=== PATIENT | male | born 1990 | race Caucasian/White ===

== ENCOUNTER 2024-11-15 21:17 | Emergency (ER) | payer MEDICARE, MEDICAID ==
[~2024-11-15] VITALS: Ht 177.8 cm; Wt 81.0 kg
[2024-11-15 21:19] VITALS: TEMP 99.2
--- NOTE | 2024-11-15 21:33 | ELECTROCARDIOGRAPH REPORT ---
[facility] Test Date: 2024-11-15 Test Time: 21:30:21 Pat Name: BASHIR CONDON Department: EMERGENCY ROOM Room: Gender: M Pr Internship: SALAS : 1990 Requested By: UBALDO GREWAL Order Number: [id number] Reading MD: Dr. Ubaldo Grewal Measurements Intervals [place] Rate: 67 P: 62 VT: 158 QRS: 83 QRSD: 81 T: 41 QT: 364 QTc: 385 Interpretive Statements Sinus rhythm Electronically Signed On 11-15-2024 22:15:[address] Ubaldo Grewal Please click the below link to view image of tracing.
[2024-11-15 21:45] LABS: BASOPHILS % (AUTO) 0.3 % (0-1); EOSINOPHILS # (AUTO) 0.1 X10'3 (0-0.9); EOSINOPHILS % (AUTO) 2.2 % (0-6); HEMATOCRIT 46.6 % (42.0-52.0); HEMOGLOBIN 16.3 g/dl (14.0-17.9); LYMPHOCYTES # (AUTO) 1.6 X10'3 (1.1-4.8); MEAN CORPUSCULAR HGB CONC 35.1 g/dL (33.0-36.5); MEAN CORPUSCULAR VOLUME 85.5 FL (78-98); MEAN PLATELET VOLUME 7.9 FL (7.4-10.4); MONOCYTES # (AUTO) 0.4 X10'3 (0-0.9); MONOCYTES % (AUTO) 6.7 % (2-12); NEUTROPHILS # (AUTO) 3.5 X10'3 (1.8-7.7); NEUTROPHILS % (AUTO) 61.8 % (42-75); PLATELET COUNT 191 X10'3 (140-440); RED BLOOD COUNT 5.45 X10'6 (4.70-6.10); RED CELL DISTRIBUTION WIDTH 13.8 % (11.5-14.5); WHITE BLOOD COUNT 5.6 X10'3 (4.5-11.0)
[2024-11-15 22:22] LABS: ALANINE AMINOTRANSFERASE 45 U/L (12-78); ALBUMIN 3.7 G/DL (3.4-5.0); ALBUMIN/GLOBULIN RATIO 1.2 (1.1-1.5); ALKALINE PHOSPHATASE 77 IU/L (46-116); ANION GAP 8 (8-16); ASPARTATE AMINO TRANSFERASE 15 U/L (10-37); BILIRUBIN,TOTAL 0.8 MG/DL (0.1-1.0); BLOOD UREA NITROGEN 12 MG/DL (7-18); BUN/CREATININE RATIO 12.8 (10.0-20.0); CALCIUM 8.9 MG/DL (8.5-10.1); CHLORIDE 107 MMOL/L (99-107); CREATININE 0.94 MG/DL (0.60-1.10); GLUCOSE 149 MG/DL (70-104); POTASSIUM 3.7 MMOL/L (3.5-5.1); PRO BRAIN NATRIURETIC PEPTIDE < 30 PG/ML (0-125); SODIUM 143 MMOL/L (135-145); TOTAL PROTEIN 6.8 G/DL (6.4-8.2); eCRCL 113 ML/MIN; eGFR > 90 ML/MIN
--- NOTE | 2024-11-15 23:28 | RADIOLOGY REPORT ---
Clinical History CP Comparison None Without Contrast BASHIR CONDON, [id number] Chest x-ray Clinical history: 34-year-old Chest pain Findings: Lung rogers: No infiltrate or effusion Heart: Normal Musculoskeletal: Normal Impression: Normal chest This report was electronically signed by Patricio Moe MD on 11/15/2024 11:26 PM.
--- NOTE | 2024-11-16 00:26 | Physician Documentation ---
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 Patient was standing in the kitchen, having gotten up approximately 5 minutes before, when he suddenly became lightheaded and generally weak and collapsed to the floor. Patient was able to slow as follow up by grabbing onto a nearby counter. He did not hit his head or lose consciousness. Currently patient feels back to his baseline and denies any cough, fever, chest pain, or shortness of breath. Mother reports patient has had bilateral leg swelling for the last year, with bilateral lower leg/feet pain. He has been diagnosed with a neuropathy and takes tramadol. Mother states patient continues to have difficulty ambulating, and spends most of his time in bed, however seems that patient is more unwilling to get out of bed and walk around then is unable, as he is able and willing to walk to the bathroom and kitchen on his own. Laboratory work CBC within normal limits no anemia no leukocytosis chemistry within normal limits LFTs within normal limits. Troponins are negative glucose slightly elevated at 150 otherw ise within normal limits. Continuous animal care assistant interpretation shows normal sinus rhythm heart rate 70s, no ectopy, normal, my interpretation. Pulse oximetry monitor interpretation shows normal oxygenation at 100% room air, normal, my interpretation. Medication Reconciliation Allergies: Coded Allergies: No Known Allergies (Unverified , 11/15/24) Past Medical History Past Medical History: Diabetes, *PSYCH* Past Surgical History: no surgical history Smoking Status: Never smoker Alcohol Use: None Review of Systems All Other Systems at this time: Reviewed and Negative ROS As stated above in the HPI, otherwise all systems are reviewed and negative. Physical Exam Vital Signs: RN Vital Signs have been reviewed: Yes, Temperature: 99.2, Source: Oral, Heart Rate: 71, Respiratory Rate: 18, BP: 117/82, Pulse Oximetry: 100, Weight: 81.000 Oxygen Flow Rate: 0 Pulse Oximetry Reflects: adequate oxygenation Physical Exam General: The patient is well developed, well nourished, nontoxic appearing and is in no acute distress. Skin: [place], warm and dry with no rashes. HEENT: Head was normocephalic and atraumatic. Chest: Clear to auscultation bilaterally without wheezes, rales or rhonchi. No accessory muscle use. No dullness to percussion. Heart: Rate regular and rhythmic. S1, S2. No murmurs. Palpation of the chest wall was normal. No rubs or thrills. Abdomen: Soft, nontender and nondistended. Positive bowel sounds. No guarding or rebound. Extremities: Pitting edema of bilateral lower extremities with dry scaly skin, mild erythema bilateral feet. No cyanosis. The patient moves all extremities. Pulses were equal and symmetric. Neurologic: Motor and sensation grossly intact. Cranial nerves II-XII grossly intact. A & O x4. Psychologic: Normal mood and affect. No agitation. Progress Results/Orders Reviewed/noted all lab results: Yes Results/Orders Orders - WAYNE OCAMPO MD Chest,Single View (11/15/24 21:25) Monitor (11/15/24 21:25) Saline Lock (11/15/24 21:25) Oxygen (11/15/24 21:25) Electrocardiogram (11/15/24 21:25) Orthostatic Vs (11/16/24 00:49) Completed Orders - WAYNE OCAMPO MD Chest,Single View (11/15/24 21:25) Cbc/Diff (11/15/24 21:25) PBNP (11/15/24 21:25) Electrocardiogram (11/15/24 21:25) CMP (11/15/24 21:25) Hs Troponin I W Calculations (11/15/24 21:25) Hs Troponin I W Calculations (11/15/24 23:25) Laboratory Tests Test 11/15/24 21:20 11/15/24 21:23 11/15/24 23:31 White Blood Count 5.6 Red Blood Count 5.45 Hemoglobin 16.3 Hematocrit 46.6 Mean Corpuscular Volume 85.5 Mean Corpuscular Hemoglobin 30.0 Mean Corpuscular Hemoglobin Concent 35.1 Red Cell Distribution Width 13.8 Platelet Count 191 Mean Platelet Volume 7.9 Neutrophils (%) (Auto) 61.8 Lymphocytes (%) (Auto) 29.0 Monocytes (%) (Auto) 6.7 Eosinophils (%) (Auto) 2.2 Basophils (%) (Auto) 0.3 Neutrophils # (Auto) 3.5 Lymphocytes # (Auto) 1.6 Monocytes # (Auto) 0.4 Eosinophils # (Auto) 0.1 Basophils # (Auto) 0.0 CBC Comment Sodium Level 143 Potassium Level 3.7 Chloride Level 107 Carbon Dioxide Level 28.0 Anion Gap 8 Blood Urea Nitrogen 12 Creatinine 0.94 Estimated GFR/1.73 m2 > 90 BUN/Creatinine Ratio 12.8 Glucose Level 149 H Calcium Level 8.9 Total Bilirubin 0.8 Aspartate Amino Transf (AST/SGOT) 15 Alanine Aminotransferase (ALT/SGPT) 45 Alkaline Phosphatase 77 Troponin I High Sensitivity < 4 L 5 Troponin I High Sens Percent Delta Troponin I Hi Sens Absolute Change Pro-B-Type Natriuretic Peptide < 30 Total Protein 6.8 Albumin 3.7 Globulin 3.1 Albumin/Globulin Ratio 1.2 Chemistry Comments Glucometer 159 H Re-Evaluation Re-Evaluation : Re-Evaluation: Unchanged Progress Laboratory work CBC within normal limits no anemia no leukocytosis chemistry within normal limits LFTs within normal limits. Troponins are negative glucose slightly elevated at 150 otherwise within normal limits. Orthostatics were obtained. Patient he was negative for orthostatics but his heart rate increased significantly I believe because he was severely deconditioned. Continuous animal care assistant interpretation shows normal sinus rhythm heart rate 70s, no ectopy, normal, my interpretation. Pulse oximetry monitor interpretation shows normal oxygenation at 100% room air, normal, my interpretation. EKG/XRAY/CT/US/VASC/MRI EKG : Additional Comment Test Date: 2024-11-15 Test Time: 21:30:21 Pat Name: BASHIR CONDON Department: EMERGENCY ROOM Room: Gender: M Ring Facer: : 1990 Requested By: WAYNE OCAMPO Order Number: [id number] Reading MD: Dr. Wayne Ocampo Measurements Intervals [place] Rate: 67 P: 62 PA: 158 QRS: 83 QRSD: 81 T: 41 QT: 364 QTc: 385 Interpretive Statements Sinus rhythm Electronically Signed On 11-15-2024 22:15:[address] Wayne Ocampo (interpreted by me) Chest X-Ray : Additional Comments Clinical History CP Comparison None Without Contrast BASHIR CONDON, [id number] Chest x-ray Clinical history: 34-year-old Chest pain Findings: Lung rogers: No infiltrate or effusion Heart: Normal Musculoskeletal: Normal Impression: Normal chest This report was electronically signed by Patricio Moe MD on 11/15/2024 11:26 PM. Reviewed by me Medical Decision Making Additional info obtained from: old records Differential Dx:Considerations: Include: anemia, CVA, dehydration, electrolyte imbalance, encephalopathy, Guillain-[place], hypoglycemia, hypotension, hypovolemia, renal failure, other Departure Time of Disposition: 02:10 Disposition: 01 HOME / SELF CARE / HOMELESS Impression: Primary Impression: Physical deconditioning Additional Impressions: Dehydration Near syncope Condition: Stable Discharge Instructions: Deconditioning, Dehydration, Adult, [id number]-[id number] Additional Instructions: Increase activity. Drink plenty of fluids. Follow up with your regular doctor. Return to the ER for any other concerns. Education Educated: Patient Educated regarding: diagnosis, treatment Signature Scribe Signature: Scribed for Wayne Ocampo MD by Lara Guerra . 11/16/24 01:07 Attestation: The note accurately reflects work and decisions made by me.Wayne Ocampo MD 11/16/24 00:26 WAYNE OCAMPO MD November 16, 2024 00:26 LARA GARZA November 16, 2024 01:11
[2024-11-16 02:21] VITALS: BP 119/80; PULSE 75; RESP 16; O2SAT 100
== END 2024-11-16 02:23 | disposition home or self-care (01) ==
LOC: ER 21:19
DX: R55 Syncope and collapse (principal); E86.0 Dehydration; E11.42 Type 2 diabetes mellitus with diabetic polyneuropathy; I16.1 Hypertensive emergency
CPT/HCPCS: 36415; 71045; 80053; 82948; 83880; 84484; 85025; 93005; 99285